=== PATIENT | female | born 1995 | race African-American/Black ===

== ENCOUNTER 2017-02-10 08:33 | Inpatient (IN) ==
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
[2017-02-10 09:19] LABS: Basophils % 0.2 %; Eosinophils % 0.7 %; Hematocrit 40.3 % (35.3-44.9); Hemoglobin 13.2 g/dL (11.5-15.4); Immature Granulocytes % 0.2 % (0-4); Lymphocytes # 1.6 K/mcL (0.6-4.6); Lymphocytes % 37.7 %; Mean Corpuscular HGB Conc 32.8 g/dL (31.6-35.5); Mean Corpuscular Hemoglobin 28.5 pg (28.0-33.3); Mean Platelet Volume 9.8 fL (9.4-12.4); Monocytes # 0.3 K/mcL (0.0-1.3); Monocytes % 6.3 %; Neutrophils # 2.4 K/mcL (1.6-8.9); Platelet Count 215 K/mcL (140-400); Red Blood Count 4.63 M/mcL (3.82-4.97); Red Cell Distribution Width 14.6 % (11.5-14.5); Segmented Neutrophils % 54.9 %
[2017-02-10 09:27] LABS: Bilirubin,Urine Negative (Negative); Blood,Urine Negative (Negative); Clarity,Urine Cloudy (Clear); Color,Urine Yellow (Yellow); Glucose,Urine (UA) Normal (Normal); Ketones,Urine Negative (Negative); Leukocyte Esterase,Urine Moderate (Negative); Nitrite,Urine Negative (Negative); Protein,Urine Negative (Neg-Trace); Specific Gravity,Urine 1.008 (1.010-1.025); Urobilinogen,Urine Normal (Normal)
[2017-02-10 09:29] LABS: Bacteria,Urine Moderate per hpf (None-Few); Hyaline Casts,Urine None Seen per lpf (None-Few); RBC,Urine 0-3 per hpf (0-3); Squamous Epithelial Cell,Urine Many per lpf (None-Few)
[2017-02-10 09:34] LABS: Amphetamine Screen,Urine Negative ng/mL (Cutoff=1000); Barbiturate Screen,Urine Negative ng/mL (Cutoff=200); Benzodiazepines Screen,Urine Negative ng/mL (Cutoff=200); Cannabinoid Screen,Urine Positive ng/mL (Cutoff = 50); Cocaine Screen,Urine Negative ng/mL (Cutoff= 300); Opiate Screen,Urine Negative ng/mL (Cutoff=300); Phencyclidine Screen,Urine Negative ng/mL (Cutoff=25)
[2017-02-10 09:35] LABS: BUN/Creatinine Ratio 11 (6-26); Blood Urea Nitrogen 9 mg/dL (7-20); Calcium 9.7 mg/dL (8.6-10.8); Carbon Dioxide 22 mEq/L (19-29); Chloride 111 mEq/L (98-109); Glucose 94 mg/dL (70-99); Osmolality,Calculated 292 (280-300); Potassium 3.8 mEq/L (3.5-4.5); Sodium 142 mEq/L (136-145); eGFR For African Americans > 60 (> 60); eGFR For Non-African Americans > 60 (> 60)
[2017-02-10 09:39] LABS: Yeast,Urine Few per hpf (None Seen)
[2017-02-10 09:42] LABS: Acetaminophen < 1.0 mcg/mL (10-30); Ethanol < 10 mg/dL (0-10); Salicylate < 5.0 mg/dL (15-30)
[2017-02-10] MEDS ORDERED: MOM Conc 10 ML UD.LIQ PO PRN (11:50)
[2017-02-10] MEDS ORDERED: Mag Hydrox/Al Hydrox/Simeth 30 ML UDC PO PRN (11:50)
[2017-02-10] MEDS ORDERED: Haloperidol Lactate 5 MG/ML VIAL IM PRN (11:50)
[2017-02-10] MEDS ORDERED: *HR* LORazepam 2 MG/ML VIAL IM PRN (11:50)
[2017-02-10] MEDS ORDERED: *HR* LORazepam 1 MG TABLET PO PRN (11:50)
[2017-02-10] MEDS ORDERED: Acetaminophen 325 MG TABLET PO PRN (11:50)
[2017-02-10] MEDS: hydrOXYzine pamoate 25 MG CAPSULE PO PRN (20:44)
[2017-02-10] MEDS: traZODone 50 MG TABLET PO PRN (20:44)
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
[2017-02-11] MEDS: hydrOXYzine pamoate 25 MG CAPSULE PO PRN ×3 (12:24→21:23)
[2017-02-11] MEDS: traZODone 50 MG TABLET PO PRN (21:22)
--- NOTE | 2017-02-12 10:22 | Psychiatry Progress Note ---
Date of Encounter: 02/12/17 Time of Encounter: 10:00 Subjective Interval history: Patient seen today case d/w treatment team and staff, she had melt down and has been crying and screaming after family came here , states she had bad panic attack and was upset as her parents were upset that she is here. she has swollen eyes crying all day. she was given literature on borderline personality and she agrees she has those issues. denies any side effects. she is still depressed, suicidal thoughts are better today. Review of Systems Psychiatric: Reports: depression, anxiety, suicidal ideation, difficulty concentrating, hopelessness, irritability, panic attacks Objective: Exam Patient orientation: Yes Person, Yes Time, Yes Place Level of alertness: Alert Patient appearance: Appropriate Behavior: cooperative, anxious, tearful Psychomotor activity: Normal Eye contact: Maintains Eye Contact Mood description: Depressed, Anxious Affect description: tearful, dysphoric, anxious Speech pattern: Coherent Speech volume: Normal Thought process: Intact Thought content: Yes Suicidal ideation Judgment: Limited Insight: Partial Results - Vital Signs Vital Signs: Temp Pulse Resp BP Pulse Ox 98.4 F 71 18 116/72 92 02/12/17 09:00 02/12/17 09:00 02/12/17 09:00 02/12/17 09:00 02/10/17 08:39 Assessment and Plan (1) Suicidal ideation Current visit: Yes Status: Acute Risks, benefits, side effects, alternatives discussed w/pt: Yes Patient agreeable to treatment: Yes (2) Major depress dis, severe Current visit: Yes Status: Acute Risks, benefits, side effects, alternatives discussed w/pt: Yes Patient agreeable to treatment: Yes (3) Acute anxiety Current visit: Yes Status: Acute Risks, benefits, side effects, alternatives discussed w/pt: Yes Patient agreeable to treatment: Yes Consult Discharge Plan - Plan Referrals: NONE,PCP [Primary Care Provider] -
[2017-02-13 09:03] VITALS: BP 142/84
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
== END 2017-02-13 11:55 | disposition home or self-care (01) | DRG 751 ==
LOC: EMEROO 08:33 → 1ANU 11:19
PROVIDERS: ADMIT Psychiatry & Neurology Psychiatry; ATTEND Psychiatry & Neurology Psychiatry

== ENCOUNTER → 2018-08-14 02:55 | Observation (INO) ==
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
[2018-08-14 00:42] LABS: Bilirubin,Urine Negative (Negative); Blood,Urine Negative (Negative); Clarity,Urine Clear (Clear); Color,Urine Yellow (Yellow); Glucose,Urine (UA) Normal (Normal); Ketones,Urine Negative (Negative); Leukocyte Esterase,Urine Negative (Negative); Nitrite,Urine Negative (Negative); Protein,Urine Negative (Neg-Trace); Specific Gravity,Urine 1.006 (1.010-1.025); Urobilinogen,Urine Normal (Normal)
[2018-08-14 00:53] LABS: Amphetamine Screen,Urine Negative ng/mL (Cutoff=1000); Barbiturate Screen,Urine Negative ng/mL (Cutoff=200); Benzodiazepines Screen,Urine Negative ng/mL (Cutoff=200); Cannabinoid Screen,Urine Positive ng/mL (Cutoff = 50); Cocaine Screen,Urine Negative ng/mL (Cutoff= 300); Opiate Screen,Urine Negative ng/mL (Cutoff=300); Phencyclidine Screen,Urine Negative ng/mL (Cutoff=25)
[2018-08-14 00:56] LABS: Basophils % 0.2 %; Eosinophils # 0.1 K/mcL (0.0-0.6); Eosinophils % 0.5 %; Hematocrit 34.9 % (35.3-44.9); Immature Granulocytes % 0.4 % (0-4); Immature Platelets 2.6 % (1.1-6.1); Lymphocytes # 2.4 K/mcL (0.6-4.6); Lymphocytes % 24.6 %; Mean Corpuscular HGB Conc 34.4 g/dL (31.6-35.5); Mean Corpuscular Hemoglobin 31.8 pg (28.0-33.3); Mean Corpuscular Volume 92.6 fL (83.0-100.0); Mean Platelet Volume 10.1 fL (9.4-12.4); Monocytes # 0.8 K/mcL (0.0-1.3); Monocytes % 8.2 %; Neutrophils # 6.5 K/mcL (1.6-8.9); Platelet Count 191 K/mcL (140-400); Red Blood Count 3.77 M/mcL (3.82-4.97); Segmented Neutrophils % 66.1 %
[2018-08-14 02:27] LABS: Candida DNA DETECTED (Not Detect); Gardnerella DNA Not Detected (Not Detect); Trichomonas DNA Not Detected (Not Detect)
[~2018-08-14 02:55] MED LIST: Betamethasone Acet/SodPhos 6 MG/ML MDV IM SCH; Ringers Solution, Lactated 1,000 ML IVC ONE; Ringers Solution, Lactated 1,000 ML IVC SCH; Terbutaline 1 MG/ML VIAL SQ ONE
--- NOTE | 2018-08-15 08:31 | Discharge Summary ---
Date of Encounter: 08/14/18 Time of Encounter: 02:30 - Discharge Diagnosis (1) 32 weeks gestation of Priority: Primary Status: Acute Comments: Admitted for observation due to contractions. (2) uterine contractions in third trimester, antepartum Priority: Secondary Status: Acute Comments: Contractions spaced after IVF and Brethine, no cervical change. (3) NST (non-stress test) reactive Priority: Secondary Status: Acute (4) Yeast vaginitis Priority: Secondary Status: Acute Comments: Terzol RX sent to pharmacy for positive yeast on vaginosis panel. (5) Marijuana user Priority: Secondary Status: Acute Comments: + THC on urine drug screen today. Will consult with social services counselor at time of delivery - Discharge Medications Prescriptions: No Action Acetaminophen [Tylenol] 500 mg PO Q6HR PRN #20 tablet PRN Reason: Pain Home Medications: Acetaminophen [Tylenol] 500 mg PO Q6HR PRN #20 tablet 06/09/18 [Rx] Allergies/Adverse Reactions: Allergy/AdvReac Type Severity Reaction Status Date / Time No Known Allergies Allergy Verified 08/14/18 00:17 Data Procedures and tests throughout hospitalization: Laboratory Tests 08/14/18 08/14/18 08/14/18 00:10 00:10 00:20 WBC RBC Hgb Hct MCV MCH MCHC RDW Plt Count MPV Immature Gran % Seg Neutrophils % Lymphocytes % Monocytes % Eosinophils % Basophils % Neutrophils # Lymphocytes # Monocytes # Eosinophils # Basophils # Immature Plt Fraction Urine Color Yellow Urine Clarity Clear Urine pH 7.0 Ur Specific [place] 1.006 L Urine Protein Negative Urine Glucose (UA) Normal Urine Ketones Negative Urine Blood Negative Urine Nitrite Negative Urine Bilirubin Negative Urine Urobilinogen Normal Ur Leukocyte Esterase Negative Ur Culture Indicated? NO Urine Opiates Screen Negative Ur Barbiturates Screen Negative Ur Phencyclidine Scrn Negative Ur Amphetamines Screen Negative U Benzodiazepines Scrn Negative Urine Cocaine Screen Negative U Marijuana (THC) Screen Positive H Ur Drug Screen Interp See Below Bijal species DNA DETECTED A Gardnerella DNA Probe Not Detected Trichomonas DNA Probe Not Detected 08/14/18 00:47 WBC 9.8 RBC 3.77 L Hgb 12.0 Hct 34.9 L MCV 92.6 MCH 31.8 MCHC 34.4 RDW 12.0 Plt Count 191 MPV 10.1 Immature Gran % 0.4 Seg Neutrophils % 66.1 Lymphocytes % 24.6 Monocytes % 8.2 Eosinophils % 0.5 Basophils % 0.2 Neutrophils # 6.5 Lymphocytes # 2.4 Monocytes # 0.8 Eosinophils # 0.1 Basophils # 0.0 Immature Plt Fraction 2.6 Urine Color Urine Clarity Urine pH Ur Specific [place] Urine Protein Urine Glucose (UA) Urine Ketones Urine Blood Urine Nitrite Urine Bilirubin Urine Urobilinogen Ur Leukocyte Esterase Ur Culture Indicated? Urine Opiates Screen Ur Barbiturates Screen Ur Phencyclidine Scrn Ur Amphetamines Screen U Benzodiazepines Scrn Urine Cocaine Screen U Marijuana (THC) Screen Ur Drug Screen Interp Bijal species DNA Gardnerella DNA Probe Trichomonas DNA Probe Date of admission: 08/14/18 00:01 Discharging clinician: Archana Dennis Anticipated date of discharge: 08/14/18 - Patient Status Disposition: Home, Self-Care Condition: Good Functional capacity at discharge: independent ambulation Overall status at discharge: patient is progressing back to baseline - Discharge Instructions Additional Instructions: LABOR AND DELIVERY DISCHARGE INSTRUCTIONS Signs and Symptoms to be Reported to your Doctor Immediately: * Sudden gush, continuous or intermittent lead of fluid from vagina (note the time of gush and color of fluid) * Onset of bright red vaginal bleeding with or without pain (if you had a vaginal exam during this visit you may notice some dark red spotting. This is normal.) * Lower abdominal cramping or backache that is premenstrual-like feeling. * More than 6 contractions in one hour. * Burning during urination, having to urinate more frequently or pain in your mid-back. * A change in the baby's activity. This could be an increase or decrease in activity. * Severe headache which does not go away with tylenol. * Sudden swelling in the face, hands, arms and/or legs. * Upper abdominal pain - sometimes associated with heartburn or nausea and is not relieved by Maalox, Mylanta or Tums. * Dizziness or blurred vision or visual disturbances (seeing stars/lights). * Kick Counts One hour after a meal, lay down on one side in a quiet place. Count the number of janee the baby moves during an hour. If less than 6 movements, notify your physician. Diet: *Force fluids - 8-10 tall glasses of fluid per day. May include popsicles and jello. *Limit caffeine - this includes chocolate, coffee, tea, any soft drink containing such as all andrew, Idris Yellow and Mountain Dew - Diet and Activity Activity: resume usual activities as tolerated Diet: regular diet Hospital Course VIDEO PRODUCER Hospital course: Patient arrived to L&D unit with complaint of contractions all day that started early in the morning and had progressively gotten stronger and more frequent. She does report positive movement, denies vaginal bleeding or leakage of fluid. At this point she thinks her contractions are about every 5-7 minutes. Upon initial exam she was found to be 2 cm dilated thick and high. There was no cervical change and greater than 2 hours while patient was here to be observed. She did receive her first dose of Celestone and IV fluids and 1 dose of Brethine to stop contractions. Vaginosis panel was collected and did return positive for yeast so a prescription for Terazol was sent to her pharmacy patient is to follow-up as scheduled for routine care. Time Attestation: Total time spent providing and/or coordinating discharge services: Time Spent: Less than 30 minutes Exam - Constitutional General appearance IM: A&O X 3, pleasant, no acute distress, answers questions appropriately - Respiratory Respiratory exam: Present: CTAB - Cardiovascular Cardiovascular exam IM: Present: RRR, +S1, +S2 - GI/Abdominal GI/Abdominal exam IM: normal bowel sounds - Rectal Rectal exam: deferred - External exam: normal external exam - Extremities Exam Extremities exam IM: Present: full ROM, normal capillary refill, normal inspection - Neurological Exam Neurological exam: alert, normal gait, oriented X3 - VTE Reasons for not Prescribing Prophylaxis: Treatment not Indicated - Low risk for VTE
== END | disposition home or self-care (01) ==
LOC: 1NENULAB
PROVIDERS: ADMIT Registered Nurse; ATTEND Registered Nurse

== ENCOUNTER 2018-10-08 21:15 | Inpatient (IN) ==
[~2018-10-08 21:15] MED LIST changes: +*HR* Nalbuphine 10 MG/ML AMPUL IVP PRN; -Betamethasone Acet/SodPhos 6 MG/ML MDV IM SCH; +Famotidine 20 MG/2 ML VIAL IVP PRN; +Lidocaine 1% 20 ML MDV INFILT PRN; +Metoclopramide 10 MG/2 ML VIAL IVP PRN; +Naloxone 0.4 MG/ML INJ IVP PRN; +Ondansetron 4 MG/2 ML VIAL IVP PRN; -Ringers Solution, Lactated 1,000 ML IVC ONE; -Terbutaline 1 MG/ML VIAL SQ ONE
[2018-10-08] MEDS ORDERED: Ringers Solution, Lactated 1,000 ML ONE (21:25)
[2018-10-08] MEDS ORDERED: Oxytocin 20 units/ LR 1000 mL 20 UNIT/1,000 ML BAG IVC ONE (21:41)
[2018-10-08 21:43] LABS: Basophils % 0.2 %; Eosinophils % 0.1 %; Hematocrit 39.5 % (35.3-44.9); Hemoglobin 13.2 g/dL (11.5-15.4); Immature Granulocytes % 0.3 % (0-4); Lymphocytes # 2.3 K/mcL (0.6-4.6); Lymphocytes % 15.5 %; Mean Corpuscular HGB Conc 33.4 g/dL (31.6-35.5); Mean Corpuscular Hemoglobin 30.8 pg (28.0-33.3); Mean Corpuscular Volume 92.3 fL (83.0-100.0); Mean Platelet Volume 10.2 fL (9.4-12.4); Monocytes # 1.1 K/mcL (0.0-1.3); Monocytes % 7.4 %; Neutrophils # 11.2 K/mcL (1.6-8.9); Platelet Count 230 K/mcL (140-400); Red Blood Count 4.28 M/mcL (3.82-4.97); Red Cell Distribution Width 13.2 % (11.5-14.5); Segmented Neutrophils % 76.5 %
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
[2018-10-08] MEDS ORDERED: Benzocaine/Menthol 56 GM AEROSOL SPRAY TP PRN (23:49)
[2018-10-08] MEDS ORDERED: Acetaminophen 325 MG TABLET PO PRN (23:49)
[2018-10-09] MEDS: Ibuprofen 600 MG TABLET PO PRN ×2 (00:04→08:20)
--- NOTE | 2018-10-09 00:10 | OB/GYN Procedure Note ---
Delivery - Delivery Date: 10/09/18 Provider: Suzi Gaines Intrapartum events: meconium Delivery induction: none Delivery monitor: external FHT (IA) Anesthesia: none Quantitated Blood Loss: 200 - Infant (s) Infant A Delivery Date: 10/08/18 Infant Delivery Time: 21:56 Presentation: vertex Position: OA Route of delivery: Gender: Female Viability: Viable Pounds: 7 Ounces: 5 Weight Gram: 3.32 kg at 1 minute: 8 at 5 mins: 9 Shoulder Dystocia: not encountered Specimens collected: cord blood Placenta: spontaneous Cord: 3 umbilical vessels - Repair Episiotomy: none Laceration Description: Periurethral - Complications Delivery complications: meconium Delivery comments: This is a 22 year old G2 now P2002 who was admitted for active labor. She progressed spontaneously to the second stage of labor. She pushed for 6 minutes. She delivered a viable, male infant, "Lord", OA over an intact perineum. A nuchal cord was not identified. A shoulder dystocia was not encountered. The infant was placed on the maternal abdomen and allowed to transition spontaneously. The cord was double clamped by shift superintendent caustic cresylate after pulsations ceased and cut by mother. scores were 8 at 1 minute and 9 at 5 minutes. The infant weighed 7lbs 5oz (3320g). The placented delivered spontaneously, intact (Bolanos) with a 3-vessel cord. Inspection revealed an intact perineum. The uterus was firm with no active bleeding. EBL was 200 mL. Placenta and umbilical artery blood gases were not sent. There were no complications during the procedure. Mom and baby are skin to skin following delivery. - Disposition Mom disposition: stable in LDR Childwold disposition: stable in LDR
[2018-10-09 05:32] LABS: Amphetamine Screen,Urine Negative ng/mL (Cutoff=1000); Barbiturate Screen,Urine Negative ng/mL (Cutoff=200); Benzodiazepines Screen,Urine Negative ng/mL (Cutoff=200); Cannabinoid Screen,Urine Positive ng/mL (Cutoff = 50); Cocaine Screen,Urine Negative ng/mL (Cutoff= 300); Opiate Screen,Urine Negative ng/mL (Cutoff=300); Phencyclidine Screen,Urine Negative ng/mL (Cutoff=25)
[2018-10-09] MEDS: Prenatal Vit/FA 1 EACH TABLET PO SCH (08:21)
--- NOTE | 2018-10-09 12:20 | OB/GYN Progress Note ---
Date of Encounter: 10/09/18 Time of Encounter: 12:18 - Assessment and Plan (1) Vaginal delivery Current Visit: Yes Status: Acute Pt meeting PPD1 milestones. Anticipate discharge home in am. (2) Patient is a currently breast-feeding mother Current Visit: Yes Status: Acute (3) History of depression Current Visit: Yes Status: Acute Pt reports excellent mood today. Subjective - Subjective Patient reports: appetite normal, voiding normally, pain well controlled, ambulating normally : doing well, nursing well Objective - Latest Vital Signs Latest vital signs: Vital Signs Temp Pulse Resp BP Pulse Ox 10/09/18 08:24 98.1 F 67 16 120/78 10/09/18 04:15 98.2 F 76 16 113/56 97 10/09/18 02:30 98.5 F 75 16 119/62 98 10/09/18 01:30 98.2 F 86 16 137/86 98 Intake and Output 10/08/18 10/09/18 10/09/18 23:59 07:59 15:59 Intake Total 900 / 900 Output Total 1000 / 1000 Balance -100 / -100 Intake: Oral 900 / 900 Output: Urine 1000 / 1000 Other: Stool Characteristics Normal for Patient Weight 92.578 kg - Exam Lungs: bilateral: normal Chest: Normal S1, Normal S2 Extremities: Present: normal Abdomen: Present: soft Uterus: Present: firm Uterus Position: 2 Fingers Below Umbilicus - Labs Labs: Laboratory Results - last 24 hr 10/08/18 10/08/18 21:20 21:38 WBC 14.7 H RBC 4.28 Hgb 13.2 Hct 39.5 MCV 92.3 MCH 30.8 MCHC 33.4 RDW 13.2 Plt Count 230 MPV 10.2 Immature Gran % 0.3 Seg Neutrophils % 76.5 Lymphocytes % 15.5 Monocytes % 7.4 Eosinophils % 0.1 Basophils % 0.2 Neutrophils # 11.2 H Lymphocytes # 2.3 Monocytes # 1.1 Eosinophils # 0.0 Basophils # 0.0 Urine Opiates Screen Negative Ur Barbiturates Screen Negative Ur Phencyclidine Scrn Negative Ur Amphetamines Screen Negative U Benzodiazepines Scrn Negative Urine Cocaine Screen Negative U Marijuana (THC) Screen Positive H Ur Drug Screen Interp See Below
[2018-10-09] MEDS: Oxytocin 20 units/ LR 1000 mL 20 UNIT/1,000 ML BAG IVC SCH ×2 (16:35→16:36)
[2018-10-10 08:24] VITALS: BP 137/76
[2018-10-10] MEDS: Prenatal Vit/FA 1 EACH TABLET PO SCH (09:47)
--- NOTE | 2018-10-10 11:07 | Discharge Summary ---
Date of Encounter: 10/10/18 Time of Encounter: 11:05 - Discharge Diagnosis (1) Vaginal delivery Priority: Primary Status: Acute Comments: Patient meeting day one milestones. Pain well-controlled with prescribed medications. Voiding without difficulty, tolerating regular diet, bleeding light. Positive bowel movement. Anticipate discharge today (2) Patient is a currently breast-feeding mother Priority: Secondary Status: Acute Comments: support as needed Will provide breast pump prescription (3) Marijuana user Priority: Secondary Status: Acute Comments: Follow-up outpatient with [employer] social worker - Discharge Medications Prescriptions: New Breast Pump [BREAST PUMP] 1 each .ROUTE AD #1 each Docusate [Colace] 100 mg PO BID capsule Benzocaine/Menthol [place] [Dermoplast [place]] 1 appl TP QID PRN aerosol PRN Reason: See Comments Ibuprofen [Motrin] 600 mg PO Q6HR PRN #60 tablet PRN Reason: Cramping Continued Acetaminophen [Tylenol] 500 mg PO Q6HR PRN #20 tablet PRN Reason: Pain Home Medications: Acetaminophen [Tylenol] 500 mg PO Q6HR PRN #20 tablet 06/09/18 [Rx] Benzocaine/Menthol [place] [Dermoplast [place]] 1 appl TP QID PRN aerosol 10/10/18 [Rx] Breast Pump [BREAST PUMP] 1 each .ROUTE AD #1 each 10/10/18 [Rx] Docusate [Colace] 100 mg PO BID capsule 10/10/18 [Rx] Ibuprofen [Motrin] 600 mg PO Q6HR PRN #60 tablet 10/10/18 [Rx] Allergies/Adverse Reactions: Allergy/AdvReac Type Severity Reaction Status Date / Time No Known Allergies Allergy Verified 08/14/18 00:17 Data Procedures and tests throughout hospitalization: Laboratory Tests 10/08/18 10/08/18 21:20 21:38 WBC 14.7 H RBC 4.28 Hgb 13.2 Hct 39.5 MCV 92.3 MCH 30.8 MCHC 33.4 RDW 13.2 Plt Count 230 MPV 10.2 Immature Gran % 0.3 Seg Neutrophils % 76.5 Lymphocytes % 15.5 Monocytes % 7.4 Eosinophils % 0.1 Basophils % 0.2 Neutrophils # 11.2 H Lymphocytes # 2.3 Monocytes # 1.1 Eosinophils # 0.0 Basophils # 0.0 Urine Opiates Screen Negative Ur Barbiturates Screen Negative Ur Phencyclidine Scrn Negative Ur Amphetamines Screen Negative U Benzodiazepines Scrn Negative Urine Cocaine Screen Negative U Marijuana (THC) Screen Positive H Ur Drug Screen Interp See Below Date of admission: 10/08/18 21:15 Consults: 10/08/18 23:49 Consult to Industrial Design Engineer [CONS] Routine Comment: Vaginal delivery, consult needed Consult to Acute Care Nursing Assistant [CONS] Routine Reason for SW Consult: +UDS during Discharging clinician: Archana Dennis Anticipated date of discharge: 10/10/18 - Patient Status Disposition: Home, Self-Care Condition: Good Functional capacity at discharge: independent ambulation Overall status at discharge: patient is progressing back to baseline - Discharge Instructions - Diet and Activity Activity: increase activity as tolerated Diet: regular diet Hospital Course Reason for admission: active labor Delivery: Episiotomy: none Laceration: other (periurethral) Other procedures: none complications: none Discharge diagnosis: IUP at term delivered baby: male Hospital course: - Delivery Date: 10/09/18 Provider: Suzi Gaines Intrapartum events: meconium Delivery induction: none Delivery monitor: external FHT (IA) Anesthesia: none Quantitated Blood Loss: 200 - Infant (s) Infant A Infant Delivery Date: 10/08/18 Infant Delivery Time: 21:56 Presentation: vertex Position: OA Route of delivery: Gender: Female Viability: Viable Pounds: 7 Ounces: 5 Weight Gram: 3.32 kg at 1 minute: 8 at 5 mins: 9 Shoulder Dystocia: not encountered Specimens collected: cord blood Placenta: spontaneous Cord: 3 umbilical vessels - Repair Episiotomy: none Laceration Description: Periurethral - Complications Delivery complications: meconium Delivery comments: This is a 22 year old G2 now P2002 who was admitted for active labor. She progressed spontaneously to the second stage of labor. She pushed for 6 minutes. She delivered a viable, male infant, "Lord", OA over an intact perineum. A nuchal cord was not identified. A shoulder dystocia was not encountered. The was placed on the maternal abdomen and allowed to transition spontaneously. The cord was double clamped by wedding coordinator after pulsations ceased and cut by mother. scores were 8 at 1 minute and 9 at 5 minutes. The weighed 7lbs 5oz (3320g). The placented delivered spontaneously, intact (Bolanos) with a 3-vessel cord. Inspection revealed an intact perineum. The uterus was firm with no active bleeding. EBL was 200 mL. Placenta and umbilical artery blood gases were not sent. There were no complications during the procedure. Mom and baby are skin to skin following delivery. - Disposition Mom disposition: stable in LDR disposition: stable in LDR Time Attestation: Total time spent providing and/or coordinating discharge services: Time Spent: Less than 30 minutes Exam - Constitutional Vitals: Temp Pulse Resp BP Pulse Ox 98.3 F 78 16 137/76 96 10/10/18 08:22 10/10/18 08:22 10/10/18 08:22 10/10/18 08:22 10/10/18 08:22 General appearance IM: A&O X 3, pleasant, no acute distress, answers questions appropriately - Respiratory Respiratory exam: Present: CTAB - Cardiovascular Cardiovascular exam IM: Present: RRR, +S1, +S2 - GI/Abdominal GI/Abdominal exam IM: normal bowel sounds, soft - Rectal Rectal exam: deferred - External exam: normal external exam Uterine Tone: Firm Uterus Position: 1 Finger Below Umbilicus, Midline - Extremities Exam Extremities exam IM: Present: full ROM, normal capillary refill, normal inspection - Neurological Exam Neurological exam: alert, normal gait, oriented X3
== END 2018-10-10 11:42 | disposition home or self-care (01) | DRG 560 ==
LOC: 1NENULAB → 1NENUOBS 10-09 01:57
PROVIDERS: ADMIT Advanced Practice Midwife; ATTEND Advanced Practice Midwife

== ENCOUNTER → 2021-09-15 10:11 | Observation (INO) ==
[2021-09-15 09:29] LABS: Bilirubin,Urine Negative (Negative); Blood,Urine Negative (Negative); Clarity,Urine Clear (Clear); Color,Urine Colorless (Yellow); Glucose,Urine (UA) Normal (Normal); Ketones,Urine Negative (Negative); Leukocyte Esterase,Urine Negative (Negative); Nitrite,Urine Negative (Negative); PH,Urine 6.5 pH Units (5.0-8.0); Protein,Urine Negative (Neg-Trace); Specific Gravity,Urine 1.006 (1.010-1.025); Urobilinogen,Urine Normal (Normal)
== END | disposition home or self-care (01) ==
LOC: 1NENULAB
PROVIDERS: ADMIT Obstetrics & Gynecology; ATTEND Obstetrics & Gynecology

== ENCOUNTER 2021-10-18 05:09 | Inpatient (IN) ==
[~2021-10-18 05:09] MED LIST changes: +*HR* Nalbuphine 10 MG/ML AMPUL IV PRN; -*HR* Nalbuphine 10 MG/ML AMPUL IVP PRN; +Azithromycin 500 MG in 0.9 % Sodium Chloride 250 ML IVPB PRN; -Lidocaine 1% 20 ML MDV INFILT PRN; -Ringers Solution, Lactated 1,000 ML IVC SCH
[2021-10-18] MEDS ORDERED: Ringers Solution, Lactated 1,000 ML IVC SCH (05:15)
[2021-10-18 05:31] LABS: Basophils % 0.1 %; Eosinophils % 0.3 %; Hematocrit 32.2 % (35.3-44.9); Hemoglobin 10.4 g/dL (11.5-15.4); Immature Granulocytes % 0.3 % (0-4); Lymphocytes # 2.3 K/mcL (0.6-4.6); Lymphocytes % 20.7 %; Mean Corpuscular HGB Conc 32.3 g/dL (31.6-35.5); Mean Corpuscular Hemoglobin 27.5 pg (28.0-33.3); Mean Corpuscular Volume 85.2 fL (83.0-100.0); Mean Platelet Volume 10.7 fL (9.4-12.4); Monocytes % 8.6 %; Neutrophils # 7.7 K/mcL (1.6-8.9); Platelet Count 195 K/mcL (140-400); Red Blood Count 3.78 M/mcL (3.82-4.97)
[2021-10-18 05:39] LABS: Amphetamine Screen,Urine Negative ng/mL (Cutoff=1000); Barbiturate Screen,Urine Negative ng/mL (Cutoff=200); Benzodiazepines Screen,Urine Negative ng/mL (Cutoff=200); Cannabinoid Screen,Urine Negative ng/mL (Cutoff = 50); Cocaine Screen,Urine Negative ng/mL (Cutoff= 300); Opiate Screen,Urine Negative ng/mL (Cutoff=300); Phencyclidine Screen,Urine Negative ng/mL (Cutoff=25)
[2021-10-18 06:08] LABS: Influenza A PCR Negative (Negative); Influenza B PCR Negative (Negative); Resp. Syncytial Virus PCR Negative (Negative)
[2021-10-18 06:13] LABS: SARS-CoV-2 by PCR (In House) Negative (Negative)
[2021-10-18] MEDS ORDERED: Oxytocin 30 UNIT/503 ML BAG IVC ONE (06:14)
[2021-10-18] MEDS ORDERED: Epidural Premix (fent/bupiv) 110 ML EP ONE (06:36)
[2021-10-18] MEDS ORDERED: EPHEDrine 50 MG/ML VIAL IVP PRN (06:49)
[2021-10-18] MEDS ORDERED: Epidural Premix (fent/bupiv) 110 ML EP SCH (07:00)
[2021-10-18] MEDS ORDERED: Measles/Mumps/Rubella Vacc 0.5 ML VIAL SQ PRN (08:57)
[2021-10-18] MEDS ORDERED: Lanolin 7 G OINT...G. TP PRN (08:57)
[2021-10-18] MEDS ORDERED: Rho Immune Globulin 1,500 UNIT SYRINGE IM PRN (08:57)
[2021-10-18] MEDS ORDERED: Benzocaine/Menthol 56 GM AEROSOL SPRAY TP PRN (08:57)
[2021-10-18] MEDS ORDERED: Ondansetron ODT 4 MG TAB.RAPDIS SL PRN (08:57)
[2021-10-18] MEDS ORDERED: OXYTOCIN/RINGERS LACTATE 10 UNIT/166.6 ML BAG IVC ONE (08:57)
[2021-10-18] MEDS ORDERED: Prenatal Vit/FA 1 EACH TABLET PO SCH (09:00)
[2021-10-18] MEDS ORDERED: NON-FORMULARY MEDICATION 1 EACH EACH (Prenatal Vitamin Tablet 1 TAB) PO SCH (09:00)
[2021-10-18] MEDS: lamoTRIgine 25 MG TABLET PO SCH (11:05)
[2021-10-18] MEDS: Ibuprofen 600 MG TABLET PO SCH ×2 (11:06→21:23)
[2021-10-18] MEDS: Acetaminophen 325 MG TABLET PO SCH ×2 (11:06→17:06)
[2021-10-19] MEDS: Acetaminophen 325 MG TABLET PO SCH ×2 (03:10→08:29)
[2021-10-19] MEDS: Ibuprofen 600 MG TABLET PO SCH (03:11)
[2021-10-19 04:36] LABS: Basophils % 0.3 %; Eosinophils # 0.1 K/mcL (0.0-0.6); Eosinophils % 0.5 %; Hematocrit 29.8 % (35.3-44.9); Hemoglobin 9.3 g/dL (11.5-15.4); Immature Granulocytes % 0.4 % (0-4); Lymphocytes # 2.8 K/mcL (0.6-4.6); Lymphocytes % 29.3 %; Mean Corpuscular HGB Conc 31.2 g/dL (31.6-35.5); Mean Corpuscular Volume 86.4 fL (83.0-100.0); Mean Platelet Volume 11.2 fL (9.4-12.4); Monocytes # 0.8 K/mcL (0.0-1.3); Monocytes % 8.7 %; Neutrophils # 5.7 K/mcL (1.6-8.9); Platelet Count 179 K/mcL (140-400); Red Blood Count 3.45 M/mcL (3.82-4.97); Red Cell Distribution Width 13.2 % (11.5-14.5); Segmented Neutrophils % 60.8 %; White Blood Count 9.4 K/mcL (4.3-11.1)
[2021-10-19 06:57] VITALS: BP 116/63; PULSE 62; TEMP 97.9; O2SAT 98
[2021-10-19] MEDS: lamoTRIgine 25 MG TABLET PO SCH (08:30)
== END 2021-10-19 13:25 | disposition home or self-care (01) | DRG 560 ==
LOC: 1NENULAB → 1NENUOBS 10:50
PROVIDERS: ADMIT Student in an Organized Health Care Education/Training Program; ATTEND Student in an Organized Health Care Education/Training Program